=== PATIENT | male | born 1995 | race African-American/Black ===

== ENCOUNTER 2017-03-15 20:04 | Inpatient (IN) | payer SELFPAY ==
--- NOTE | ~2017-03-15 | PA ---
Unit #: [id number] #: [id number] Patient: ADELINA WILSON [id number] [facility] [address] [place] [address] [id number] MR#: [id number] NAME: ADELINA WILSON ROOM: P131 Age: 21 Sex: M Admission Date: 03/15/2017 : 1995 Date of Assessment: 03/16/2017 Attending Physician: Harvinder Magallanes M.D. Admitting Physician: Harvinder Magallanes M.D. Primary Care Physician: Primary Care Physician No PSYCHIATRIC ASSESSMENT IDENTIFYING INFORMATION The patient is a 21-year-old male admitted complaining of suicidal ideation. CHIEF COMPLAINT "I need to get my life back together." INFORMANT(S) Patient, reliability is fair. HISTORY OF PRESENT ILLNESS The patient is a 21-year-old white male after presenting to this facility voicing positive suicidal ideation. The patient reports that he is fearful about losing everything. He reports that 3 weeks ago he was expelled from the home he had previously shared with his mother of his orq-aj-gqopgrm child after an EPO as been filed. He has been homeless for the past 5 to 6 days per his report and had done some time in assisted related to an EPO violation. The patient has been treated at this facility in the past by Dr. Fernandez as an adolescent and was at that time prescribed Wellbutrin, Abilify, and trazodone though he has been off these medications for some time. The patient reports positive suicidal ideation without specific plan. He also admits to abuse of cocaine, opioids, and benzodiazepines though he states "I don't have no addiction problem." The patient has voiced reporting positive auditory hallucinations. PAST PSYCHIATRIC HISTORY As above. PAST MEDICAL HISTORY Noncontributory. MEDICATIONS None at this time. ALLERGIES None. FAMILY HISTORY Noncontributory. SOCIAL HISTORY The patient is presently homeless. He reports substance use as noted previously. 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 MENTAL STATUS EXAMINATION Examination at this time reveals the patient to be a thin male appearing younger than his stated age of 21 years. He is in no apparent physical distress at the time of examination. He is awake, alert, and oriented in all spheres. His mood is mildly dysphoric, his affect congruent. Speech is generally well coherent. There are no gross deficits in memory or cognition noted. Intelligence is judged to be in the average range based on fund of knowledge. The patient is cooperative throughout the interview. He is currently endorsing positive suicidal ideation and hopelessness. He denies homicidal ideation. He denies any psychotic symptoms. His judgment and insight appear to be intact. ASSETS AND LIABILITIES The patient's assets: Motivation for change. Liabilities: Lack of resources. DIAGNOSTIC IMPRESSION 1. Cocaine use disorder. 2. Sedative hypnotic use disorder. 3. Cannabis use disorder. 4. Mood disorder unspecified. TREATMENT PLAN The patient remains hospitalized for safety and stabilization. Transfer to the [facility] Unit will take place, and we will restart the patient's previously prescribed Wellbutrin and Abilify, and p.r.n. trazodone. The patient will participate in appropriate order of milieu activities, and suicide precautions are in place. ESTIMATED LENGTH OF STAY 5 days. Dictated by... Harvinder Magallanes M.D. Marcin TD: 03/16/2017 15:11 JOB #: [id number] PSYCHIATRIC ASSESSMENT Page 1 of 1 X Harvinder Magallanes MD X PSYCHIATRIC ASSESSMENT
--- NOTE | ~2017-03-15 | DS ---
Unit #: [id number] #: [id number] Patient: ADELINA WILSON [id number] [place] [address] [id number] MR#: [id number] NAME: ADELINA WILSON ROOM: P211 Age: 21 Sex: M Admission Date: 03/15/2017 : 1995 Discharge Date: 03/18/2017 Attending Physician: Harvinder Magallanes M.D. Primary Care Physician: Primary Care Physician No DISCHARGE SUMMARY REASON FOR ADMISSION The patient is a 21-year-old, male, admitted to the [address] [place] [address] unit complaining of depressed mood and increased abuse of cocaine and opioids. HOSPITAL COURSE The patient was admitted to the [address] [place] [address] unit. No detox symptoms works. The patient exhibited no signs of withdrawal during his stay in the hospital. The patient did report history of positive response to a combination of Abilify and Wellbutrin and requested these medications to be restarted. He did reasonably well on medications and on 03/17/2017, had reconciled with his mother and stated that he would be allowed to return to that domicile. He requested discharge on 03/18/2017, it was so ordered. FINAL DIAGNOSES Bipolar disorder, most recent episode depressed; cannabis use disorder; opioid use disorder; cocaine use disorder. DISPOSITION ON DISCHARGE The patient is discharged on the following medications: Wellbutrin SR 150 mg q.a.m., Abilify 2 mg q.a.m. for mood stabilization, and trazodone 50 mg at h.s. p.r.n. insomnia. DISCHARGE INSTRUCTIONS No dietary or physical restrictions were placed upon the patient at the time of discharge. FOLLOWUP Followup will take place through the auspices of community mental health resources. PROGNOSIS The patient's prognosis considered fair. Dictated by... Harvinder Magallanes M.D. CB/asmita TD: 03/18/2017 13:50 JOB #: [id number] Unit #: [id number] #: [id number] Patient: ADELINA WILSON DISCHARGE SUMMARY Page 1 of 1 X Harvinder Magallanes MD DISCHARGE SUMMARY
--- NOTE | ~2017-03-15 | HP ---
Unit #: [id number] #: [id number] Patient: LENIN WILSON [id number] [place] [address] [id number] MR#: [id number] NAME: LENIN WILSON ROOM: P211 Age: 21 Sex: M Admission Date: 03/15/2017 : 1995 Attending Physician: Harvinder Magallanes M.D. Admitting Physician: Harvinder Magallanes M.D. Primary Care Physician: Primary Care Physician No HISTORY AND PHYSICAL HISTORY OF PRESENT ILLNESS Lenin is a 21 year old admitted to [address] [place] [address] with depression after verbalizing wanting to hurt himself. PAST MEDICAL HISTORY Nothing significant PAST SURGICAL HISTORY Nothing reported ALLERGIES No known drug allergies. SOCIAL HISTORY He denies cigarettes and alcohol but admits to using marijuana frequently. FAMILY HISTORY Medically noncontributory. REVIEW OF SYSTEMS CONSTITUTIONAL: No fever or chills. HEENT: Denies any sore throat, ear pain or runny nose. CARDIOVASCULAR: Denies chest pain, irregular heart rhythm or palpitations. CHEST: Denies shortness of breath or cough. No hemoptysis. GASTROINTESTINAL: Denies nausea, vomiting, diarrhea or chronic constipation. ENDOCRINE: Denies history of increased thirst or urination. No recent significant weight loss or gain. GENITOURINARY: Denies dysuria, frequency, or hematuria. SKIN: Denies any rashes. HEMATOLOGIC: Denies history of increased bleeding or bruising. MUSCULOSKELETAL: Denies any hot, swollen joints. No generalized muscle pain. NEUROLOGIC: Denies problems with vision or speech. No frequent, severe headaches. No numbness, tingling or weakness in any extremities. Denies loss of bladder or bowel control. CURRENT MEDICATIONS 1. Abilify 2 mg q.a.m. 2. Zyban 150 mg q.a.m. 3. Desyrel p.r.n. 4. Zyprexa p.r.n. Unit #: [id number] #: [id number] Patient: LENIN WILSON 5. Milk of Magnesia p.r.n. 6. Maalox p.r.n. 7. Tylenol p.r.n. PHYSICAL EXAMINATION GENERAL: Alert, well-nourished, in no apparent distress. VITAL SIGNS: Blood pressure 110/66, heart rate 80, respirations 16, temperature 98.6. WEIGHT: 156 pounds. HEIGHT: 5'9". SKIN: Warm and dry without rash or lesion. HEENT: Normocephalic. TMs not viewed. Oral and nasal passages clear. Conjunctivae clear. Pupils equal, round and reactive to light and accommodation. Extraocular movements intact. NECK: Supple without lymphadenopathy or thyromegaly. HEART: Regular rate and rhythm without murmur. LUNGS: Clear. ABDOMEN: Soft, nontender. : Not done. EXTREMITIES: No evidence of cyanosis, clubbing or edema. Moves all extremities without focal deficit. NEUROLOGICAL: Grossly within normal limits. Cranial Nerves: II: Visual edouard are intact. III, IV AND : Extraocular movements are intact. Pupils are equal, round and reactive to light. V: Facial sensation is grossly normal. VII: Facial movements and expression are normal. VIII: Auditory acuity grossly intact. IX, X: Uvula is midline. Phonation is normal. XI: Patient shrugs shoulders and turns head normally. XII: Tongue protrudes in the midline. Sensory and Motor Function: Sensory and motor sensation is grossly normal. Motor: moves all extremities well. Coordination: Gait is normal. Deep Tendon Reflexes: Intact. IMPRESSION Psychiatric admission RECOMMENDATIONS PSYCHIATRIC: Per psychiatrist. MEDICAL: I see no contraindications to participating in facility's activities. MEDICAL PROGNOSIS Good. MEDICAL CONDITION Stable. Dictated by... Lupis Baxter P.A.-C. for Magno Lr/lu Unit #: [id number] #: [id number] Patient: LENIN WILSON TD: 03/17/2017 02:15 JOB #: [id number] HISTORY AND PHYSICAL Page 1 of 1 X Lupis Baxter HISTORY AND PHYSICAL
--- NOTE | ~2017-03-15 | A ---
[facility] Nutrition Therapy DATE: 03/16/17 Patient: ADELINA WILSON Physician: TRAY Address: [address] [place] [address] Room/Bed: [address], Zip: [place] [address] Admit Date: 03/15/17 Date of : [birth year] Height: 5 9 Weight: [phone] NUTRITIONAL ASSESSMENT: REASON: NUTRITION RISK POINT- UNINTENTIONAL WEIGHT LOSS PATIENT ADMITTED FOR SI AND HALLUCINATIONS PMH: NONE Anthropometrics: HT: 5'9", WT: 156#, BMI: 23 Labs: 03/16/17- GLU: 129, BUN: 8 Meds: [id number] Assessment: PATIENT IS A 21 Y/O MALE ADMITTED FOR SI AND HALLUCINATIONS. PATIENT IS CURRENTLY SELF-EMPLOYED, HOMELESS, AND HAS FREQUENT USE OF TOBACCO, MARIJUANA, COCAINE, BENZOS, AND PRESCRIPTION PILLS. PATIENT HAS A HX OF INPATIENT PSYCH HOSPITALIZATIONS. UPON ADMIT PATIENT STATED A POOR APPETITE WITH NO RECENT WEIGHT CHANGES OVER LAST SEVERAL WEEKS. CURRENT PO INTAKES ARE UNKNOWN. PATIENT'S BMI IS WITHIN A HEALTHY RANGE. THERE ARE NO SKIN OR GI ISSUES NOTED ATT. IT IS NOTED THAT PATIENT HAS BEEN NON-COMPLIANT WITH HIS MEDICATIONS FOR LAST SEVERAL YEARS. PATIENT IS ON A REGULAR DIET. Dx: NO NUTRITION DX Intervention: REGULAR DIET, MEDS PER MD, PSYCH Monitoring, Evaluation and Goals: 1. ADEQUATE PO INTAKES >50% OF MEALS 2. PREVENT, CORRCT MICRO/MACRO NUTRIENT DEFICIENCIES MONITOR: WEIGHTS, LABS, PO/FLUID INTAKES Recommendations: 1. CONTINUE WITH REGULAR DIET TOLERATED. IF PATIENT HAS C/O HUNGER OFFER SNACKS BETWEEN MEALS 2. ENCOURAGE ADEQUATE PO AND FLUID INTAKES RD TO F/U PER PROTOCOL AND PRN R/T PATIENT NOT AT NUTRITIONAL RISK ATT [facility] Therapy DATE: 03/16/17 Patient: ADELINACHINO BATWAY Physician: TRAY Address: [address] [place] [address] Room/Bed: [address], Zip: [place] [address] Admit Date: 03/15/17 Date of : [birth year] Height: 5 9 Weight: [phone] Respectfully, BRETT MURILLO, RD, LD [facility] cc: client file
[2017-03-16 12:39] LABS: BASOPHIL% 0.9 % (0-2.5); EOSINOPHIL# 0.1 X10e3 (0-0.7); EOSINOPHIL% 1.9 % (0.0-7.0); HEMATOCRIT 41.4 % (38.0-50.0); LYMPHOCYTE# 1.9 X10e3 (1.0-3.5); LYMPHOCYTE% 47.3 % (17.0-45.0); MEAN CELL VOLUME 83.7 FL (83-96); MEAN CORPUSCULAR HEMOGLOBIN 26.2 PG (28-34); MEAN CORPUSCULAR HGB CONC 31.3 g/dL (30-36); MEAN PLATELET VOLUME 9.4 FL (6.5-11.5); MONOCYTE# 0.3 X10e3 (0-1.0); MONOCYTE% 8.2 % (3.0-12.0); NEUTROPHIL# 1.7 X10e3 (1.5-7.1); NEUTROPHIL% 41.7 % (40-75); PLATELET COUNT 202 X10e3 (140-420); RED BLOOD COUNT 4.95 X10e (3.90-5.60); RED CELL DISTRIBUTION WIDTH 15.3 % (11.0-15.5)
[2017-03-16 12:50] LABS: DIFF IND NO
[2017-03-16 12:51] LABS: ALBUMIN SERUM 3.9 g/dL (3.5-5.0); BILIRUBIN,TOTAL 0.8 mg/dL (0.2-2.0); BUN/CREATININE RATIO 8.88; CALCIUM SERUM 8.9 mg/dL (8.4-10.2); CREATININE SERUM 0.9 mg/dL (0.6-1.4); POTASSIUM 4.2 mmol/L (3.5-5.1); PROTEIN TOTAL SERUM 6.1 g/dL (6.0-8.3)
== END 2017-03-18 14:28 | disposition home or self-care (01) | DRG 897 ==
LOC: P1S 23:15 → P2S 03-16 19:52
PROVIDERS: Specialist
DX: F14.20 Cocaine dependence, uncomplicated (principal); F11.10 Opioid abuse, uncomplicated; F15.20 Other stimulant dependence, uncomplicated; F31.30 Bipolar disorder, current episode depressed, mild or moderate severity, unspecified; F12.20 Cannabis dependence, uncomplicated; F39 Unspecified mood [affective] disorder; G47.00 Insomnia, unspecified; Z59.0 Homelessness
CPT/HCPCS: 80053; 85025